=== PATIENT | male | born 1965 | race Caucasian/White ===

== ENCOUNTER 2024-05-02 10:43 | Emergency (ER) | payer MEDICAID ==
[~2024-05-02] VITALS: Ht 190.5 cm; Wt 71.0 kg
[2024-05-02] MEDS: ONDANSETRON HCL 4 MG/2 ML VIAL IV ONE ×2 (11:17→11:21)
--- NOTE | 2024-05-02 11:25 | ED.PDOC ---
GI ASSESSMENT HPI Comments Ernesto Chopra this is a 58-year-old male patient who presents to ED with flu- like symptoms (fever, chills, generalized fatigue and weakness), headache, dizziness, abdominal pain, nausea, vomiting, dyspnea, dry cough, severe diarrhea (approximately 3 times a day no blood, brown), unintentional weight loss of 10 lb in the past 10 days which has been getting progressively worse, prompting his visit to the ER. Patient denies chest pain, palpitation, syncope, sick contacts, recent travel, different eating habits, dysuria, bleeding and motor or sensory deficits. Past medical history: Denies Surgical history: Right knee surgery Family history: Mother had colon cancer Social history: Lives in [place] with roommate. Ex ethanol and cocaine abuse, has been clean for the past three years. Smoker (only three cigarettes a day fo r less than 10 years), quit over 20 years ago. Allergies: Denies Home medication: Ibuprofen p.r.n. Chief Complaint: Flu like Time Seen by MD: 10:52 Primary Care Provider: NA Allergies: Coded Allergies: NO KNOWN ALLERGIES (Unverified , 05/02/24) Home Meds Active Scripts Ondansetron Odt 4MG Tab (ZOFRAN PO) 4 Mg Tb, 4 MG PO BID PRN for 20 Days, #40 TAB ODT TAB-DISSOLVE IN MOUTH, THEN SWALLOW Prov:KEZIA MONTEMAYOR RESIDENT 05/02/24 Mode of Arrival: Wheelchair Physical Exam General Appearance: Thin HEENT: Normal ENT Inspection, Pharynx Normal, TMs Normal, Other (Dry mucous membranes) Neck: Full Range of Motion, Non-Tender, Normal, Normal Inspection Respiratory: Chest Non-Tender, Lungs Clear, No Accessory Muscle Use, No Respiratory Distress, Normal Breath Sounds Cardiovascular: No Edema, No JVD, No Murmur, No Gallop, Normal Peripheral Pulses, Tachycardia Breast Exam: Deferred Gastrointestinal: Abnormal Bowel Sounds, No Organomegaly, No Pulsatile Mass, RLQ, RUQ, Soft Genitalia: Deferred Pelvic: Deferred Rectal: Deferred Extremities: No calf tenderness, Normal capillary refill, Normal inspection, Normal range of motion, Non-tender, No pedal edema Neurologic: Alert, 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 Was a procedure done?: No GI differential Dx Differential Diagnosis: Appendicitis, Angina/NC, Gastritis/PUD, Gastr oenteritis, Electrolyte Imbalance, Anemia, Stress Ulcer, Kidney Stone X-Ray, Labs, Meds, VS Vital Signs Date Time Temp Pulse Resp B/P (MAP) Pulse Ox O2 Delivery O2 Flow Rate FiO2 05/02/24 11:29 98.5 93 17 118/81 (93) 97 98.5 05/02/24 11:29 93 17 97 Room Air 05/02/24 10:52 98.2 105 20 122/78 (93) 98 Lab Test 05/02/24 11:54 05/02/24 10:54 Range/Units White Blood Count 4.6 4.4-10.8 10^3/uL Red Blood Count 4.74 4.5-5.90 10^6/uL Hemoglobin 14.3 13.5-17.5 g/dL Hematocrit 40.9 L 41.0-53.0 % Mean Corpuscular Volume 86.4 80.0-100.0 fL Mean Corpuscular Hemoglobin 30.3 28.0-32.0 pg Mean Corpuscular Hemoglobin Concent 35.0 32.0-36.0 g/dL Red Cell Distribution Width 12.7 11.8-14.3 % Platelet Count 263 140-450 10^3/uL Mean Platelet Volume 8.3 6.9-10.8 fL Neutrophils (%) (Auto) 77.6 37.0-80.0 % Lymphocytes (%) (Auto) 13.9 10.0-50.0 % Monocytes (%) (Auto) 6.8 0.0-12.0 % Eosinophils (%) (Auto) 1.3 0.0-7.0 % Basophils (%) (Auto) 0.4 0.0-2.0 % Neutrophils # (Auto) 3.6 1.6-8.6 10 ^3/uL Lymphocytes # (Auto) 0.6 0.4-5.4 10 ^3/uL Monocytes # (Auto) 0.3 0-1.3 10 ^3/uL Eosinophils # (Auto) 0.1 0-0.8 10 ^3/uL Basophils # (Auto) 0 0-0.2 10 ^3/uL Nucleated Red Blood Cells 0.1 % Prothrombin Time 10.5 9.3-11.8 sec Prothrombin Time INR 0.99 0.9-1.15 Activated Partial Thromboplast Time 28.9 24.5-34.5 SEC Sodium Level 134 L 136-145 mmol/L Potassium Level 4.3 3.5-5.1 mmol/L Chloride Level 103 98-107 mmol/L Carbon Dioxide Level 26 20-31 mmol/L Anion Gap 5 5-15 Blood Urea Nitrogen 5 L 9-23 mg/dL Creatinine 0.72 0.700-1.30 mg/dL Glomerular Filtration Rate Calc 105 >90 mL/min BUN/Creatinine Ratio 6.9 L 10.0-20.0 Serum Glucose 106 74-106 mg/dL Lactic Acid Level 0.9 0.4-2.0 mmol/L Calcium Level 9.7 8.7-10.4 mg/dL Magnesium Level 2.0 1.6-2.6 mg/dL Total Bilirubin 1.9 H 0.2-1.0 mg/dL Aspartate Amino Transferase (AST) 14 13-40 U/L Alanine Aminotransferase (ALT) 23 7-40 U/L Alkaline Phosphatase 60 46-116 U/L Ammonia < 10 L 11-32 umol/L Total Protein 7.1 5.7-8.2 g/dL Albumin 4.5 3.2-4.8 g/dL POC Glucose 98 70-106 mg/dl Current Medications Medications (Trade) Dose Ordered Sig/[place] Route Start Time Stop Time Status Last Admin Ondansetron HCl (Zofran) 4 mg ONCE ONCE IV 05/02/24 11:15 05/02/24 11:16 DC 05/02/24 11:17 Sodium Chloride 500 ml @ 1,000 mls/hr Q30M ONCE IV 05/02/24 11:15 05/02/24 11:44 DC 05/02/24 11:36 X-Ray, Labs, Meds, VS Comment Reviewed laboratory workup, chest x-ray and abdomen and pelvis CT. Within normal limits. Time of 1ST Reevaluation: 12:49 Reevaluation 1ST: Resolved Patient Education/Counseling: Diagnosis, Treatment, Prognosis Family Education/Counseling: Diagnosis, Treatment, Prognosis Departure 1 Departure Time of Disposition: 12:49 Impression: Primary Impression: Gastroenteritis Disposition: HOME / SELF CARE / HOMELESS Condition: Stable Additional Instructions: Reviewed vital signs, laboratory results, chest x-ray and abdomen and pelvis CT, all within normal limits with no acute findings (abdomen and pelvis CT does show diverticulosis and lipoma on right abdominal quadrant of abdominal muscles). Patient responded to IV Zofran and IV fluids, is tolerating oral fluids intake. Probable primary diagnosis gastroenteritis. Patient hemodynamically stable, asymptomatic, tolerating oral intake, in condition to be discharged home. Was granted under optimal medical therapy (p.r.n. p.o. Zofran), gave her advice on healthy lifestyle habits and follow up with PCP. e-Prescriptions Ondansetron Odt 4MG Tab (ZOFRAN PO) 4 Mg Tb 4 MG PO BID PRN for 20 Days, #40 TAB ODT TAB-DISSOLVE IN MOUTH, THEN SWALLOW Prov: KEZIA MONTEMAYOR RESIDENT 05/02/24 Critical Care Note Critical Care Time?: No Stability Stability form required: No Heart Score Heart Score: Heart Score Response (Comments) Value History N/A 0 EKG N/A 0 Age N/A 0 Risk Factors N/A 0 Troponin N/A 0 Total 0 KEZIA MONTEMAYOR RESIDENT May 02, 2024 11:25
[2024-05-02] MEDS: SODIUM CHLORIDE 0.9% 500 ML IV ONE (11:36)
--- NOTE | 2024-05-02 11:37 | DVH ---
CHEST RADIOGRAPH Indication: SOB Technique: Single frontal view of the chest was obtained Comparison: None FINDINGS: Lines and Tubes: None Lungs: No focal consolidation. Pleura: No effusion. No pneumothorax. Cardiomediastinal contours: Unremarkable Bones: No acute osseous abnormality. IMPRESSION: No acute cardiopulmonary disease.
[2024-05-02 12:18] LABS: Basophils # (auto) 0 10 ^3/uL (0-0.2); Basophils % (auto) 0.4 % (0.0-2.0); Eosinophils # (auto) 0.1 10 ^3/uL (0-0.8); Eosinophils % (auto) 1.3 % (0.0-7.0); Hematocrit 40.9 % (41.0-53.0); Hemoglobin 14.3 g/dL (13.5-17.5); Lymphocytes # (auto) 0.6 10 ^3/uL (0.4-5.4); Lymphocytes % (auto) 13.9 % (10.0-50.0); Mean Corpuscular Hemoglobin 30.3 pg (28.0-32.0); Mean Corpuscular Volume 86.4 fL (80.0-100.0); Monocytes # (auto) 0.3 10 ^3/uL (0-1.3); Monocytes % (auto) 6.8 % (0.0-12.0); Neutrophils # (auto) 3.6 10 ^3/uL (1.6-8.6); Neutrophils % (auto) 77.6 % (37.0-80.0); Nucleated Red Blood Cells % 0.1 %; Platelet Count (auto) 263 10^3/uL (140-450); Red Blood Cells 4.74 10^6/uL (4.5-5.90); Red Cell Distribution Width 12.7 % (11.8-14.3); White Blood Cell 4.6 10^3/uL (4.4-10.8)
--- NOTE | 2024-05-02 12:19 | DVH ---
CT ABDOMEN AND PELVIS WITHOUT CONTRAST CLINICAL HISTORY: Abdominal pain TECHNIQUE: Multiple contiguous axial images of the abdomen and pelvis without intravenous contrast. The images were reformatted degenerate coronal and sagittal reconstructions. All CT scans at this medical facility are performed using dose modulation techniques as appropriate t o a performed exam including the following:Automated exposure control was utilized; adjustment of the MA and/or KV according to patient size; and use of iterative reconstruction technique. Radiation Dose Information: CT Dose: CTDI volume is 6 mGy. Dose-length product is 336 mGy*cm Comparison: None FINDINGS: Evaluation of the abdomen and pelvis is limited without intravenous contrast. There is a 1.3 cm cyst in the inferior tip of the right hepatic lobe. There is no gross suspicious ap pearing hepatic lesion. The gallbladder, pancreas, kidneys, adrenal glands, and spleen appear with in normal limits. There is no gross evidence of abdominal lymphadenopathy. There is no free fluid or free air. The stomach grossly appears unremarkable. The small and large bowel loops demonstrate normal caliber . There are scattered diverticula in the distal colon without evidence of acute diverticulitis. The abdominal aorta and IVC appear within normal limits. The bladder appears unremarkable for the degree of distention. The prostate gland appears mildly prom inent in size.. There is no gross evidence of a pelvic mass. There is no free fluid collection. Lung bases are clear. There is no acute osseous abnormality. There is a 10.0 x 5.6 cm intramuscular lipoma in the right tra nsverse abdominis muscle. IMPRESSION: 1. There is no acute process in the abdomen and pelvis. 2. Sigmoid diverticulosis. 3. 10 cm intramuscular lipoma in the right transverse abdominis muscle. HS:Y
[2024-05-02 12:30] LABS: INR 0.99 (0.9-1.15); Partial Thromboplastin Time 28.9 SEC (24.5-34.5); Prothrombin Time 10.5 sec (9.3-11.8)
[2024-05-02 12:34] LABS: Alanine Aminotransferase 23 U/L (7-40); Albumin 4.5 g/dL (3.2-4.8); Alkaline Phosphatase 60 U/L (46-116); Anion Gap 5 (5-15); Aspartate Aminotransferase 14 U/L (13-40); BUN/Creatinine Ratio 6.9 (10.0-20.0); Calcium 9.7 mg/dL (8.7-10.4); Carbon Dioxide 26 mmol/L (20-31); Chloride 103 mmol/L (98-107); Potassium 4.3 mmol/L (3.5-5.1); Total Protein 7.1 g/dL (5.7-8.2)
[2024-05-02 12:36] LABS: Bilirubin, Total 1.9 mg/dL (0.2-1.0); Blood Urea Nitrogen 5 mg/dL (9-23); Glucose 106 mg/dL (74-106); Sodium 134 mmol/L (136-145)
[2024-05-02] MEDS ORDERED: ZOFR4T PO (12:48)
[2024-05-02 13:55] LABS: COVID19 ANTIGEN SOFIA FIA NEGATIVE (NEGATIVE); Rapid Influenza A Negative (Negative); Rapid Influenza B Negative (Negative)
[2024-05-02 14:29] VITALS: BP 119/70; PULSE 83; RESP 16; TEMP 98.1; O2SAT 98
--- NOTE | 2024-05-03 08:40 | ECG ---
[facility], [place] Test Date: 2024-05-02 Test Time: 11:04:35 Pat Name: ORESTES CAGLE Department: ER Room: Gender: Merchandiser Retail Representative: : 1965 Requested By: KEZIA MONTEMAYOR Order Number: [id number] Reading MD: Cristi Zuniga Measurements Intervals [place] Rate: 100 P: 78 OK: 167 QRS: 96 QRSD: 93 T: -11 QT: 357 QTc: 461 Interpretive Statements Sinus tachycardia Right axis deviation Borderline T wave abnormalities Baseline wander in lead(s) V2,V3 Electronically Signed On 05-05-2024 15:47:29 PST by Cristi Zuniga Please click the below link to view image of tracing.
== END 2024-05-02 14:34 | disposition home or self-care (01) ==
LOC: ER 10:43
DX: K52.9 Noninfective gastroenteritis and colitis, unspecified (principal); F14.10 Cocaine abuse, uncomplicated; Z98.890 Other specified postprocedural states; Z87.891 Personal history of nicotine dependence; Z20.822 Contact with and (suspected) exposure to COVID-19; Z86.2 Personal history of diseases of the blood and blood-forming organs and certain disorders involving the immune mechanism
CPT/HCPCS: 36415; 71045; 74176; 80053; 82140; 82962; 83605; 83735; 85025; 85610; 85730; 87426; 87804; 93005; 96361; 96374; 99285; J2405; J7030